=== PATIENT | female | born 1995 | race Caucasian/White ===

== ENCOUNTER 2017-03-18 08:20 | Day surgery (SDC) | payer OTHER ==
[~2017-03-18 08:20] MED LIST: Bupivacaine 0.5%/EPINEPHrine 1:200,000 50 ML MDV ONE; Lidocaine 1% 50 ML MDV ONE
[2017-03-18] MEDS ORDERED: Lactated Ringers 1,000 ML IV SCH (09:00)
[2017-03-18] MEDS ORDERED: Propofol 200 MG/20 ML SDV ONE (09:06)
[2017-03-18] MEDS ORDERED: Lidocaine 0.5% 50 ML SDV ONE (09:06)
[2017-03-18] MEDS ORDERED: fentaNYL 100 MCG/2 ML SDV ONE (09:07)
[2017-03-18] MEDS ORDERED: Midazolam 1 MG/ML 2 ML SDV ONE (09:07)
[2017-03-18] MEDS ORDERED: Lidocaine 1% 2 ML ONE (09:59)
[2017-03-18] MEDS ORDERED: Acetaminophen/HYDROcodone 325-5 MG Tab PO PRN (11:31)
[2017-03-18 12:32] VITALS: BP 104/76
--- NOTE | 2017-03-19 07:42 | OR ---
DATE OF PROCEDURE: 03/18/2017 PREOPERATIVE DIAGNOSIS: Right index finger palmar proximal phalanges 1 cm subcutaneous mass consistent with ganglion cyst. POSTOPERATIVE DIAGNOSIS: Right index finger proximal phalanges 1 cm subcutaneous mass possible ganglion cyst. PROCEDURE: Right index finger proximal phalanges exploration with resolution of mass. ANESTHESIA: Right [place] block. INDICATIONS: This 21-year-old white female has a mass on the palmar aspect of her right index fingers proximal phalanges. It is about 1 cm in diameter. She says it has been there for about six years. Recently it has started to bother her. It has the appearance of a ganglion cyst. She is here to have it excised. I counseled her for excision of this and she gave her informed consent to proceed. DESCRIPTION OF PROCEDURE: After adequate right upper extremity [place] block anesthesia was obtained, her right upper extremity was prepped and draped in the usual sterile fashion. Time- out was held. An incision was made obliquely over the mass. This was carried deep to the area of the mass. The mass seemed to move radially. We dissected toward the mass and the mass disappeared, presumably it was a ganglion cyst that we ruptured. Rather than cause of any injury, we then terminated the procedure. The skin was closed in a running stitch of 5- 0 Prolene and a bulky tube gauze dressing was applied. The tourniquet was cycled down and she was brought to the recovery room in good condition. Mauri Eason MD /[id number] JOSE LUIS
== END 2017-03-18 13:00 | disposition home or self-care (01) ==
LOC: JP.SDS 08:20
PROVIDERS: ATTEND Surgery
DX: R22.31 Localized swelling, mass and lump, right upper limb (principal); J45.909 Unspecified asthma, uncomplicated; Z88.8 Allergy status to other drugs, medicaments and biological substances
CPT/HCPCS: 26210; A9270; J2250; J2704; J3010; J7120